=== PATIENT | female | born 1950 | race Asian ===

== ENCOUNTER → 2017-11-02 | Outpatient (CLI) | payer BC, OTHER | END | disposition home or self-care (01) | LOC: CFH 14:45 | PROVIDERS: ATTEND Internal Medicine | DX: J84.10 Pulmonary fibrosis, unspecified (principal); R06.00 Dyspnea, unspecified | CPT/HCPCS: 71046 ==

== ENCOUNTER → 2019-04-18 | Outpatient (CLI) | payer BC, MEDICARE, OTHER | END | disposition home or self-care (01) | LOC: CFH 13:40 | PROVIDERS: ATTEND Family Medicine | DX: M16.12 Unilateral primary osteoarthritis, left hip (principal); M47.816 Spondylosis without myelopathy or radiculopathy, lumbar region; M43.28 Fusion of spine, sacral and sacrococcygeal region; M25.752 Osteophyte, left hip; M25.78 Osteophyte, vertebrae | CPT/HCPCS: 72110 ==

== ENCOUNTER → 2019-06-11 | Outpatient (CLI) | payer BC, MEDICARE, OTHER | END | disposition home or self-care (01) | LOC: CFH 14:57 | PROVIDERS: ATTEND Internal Medicine Rheumatology | DX: M19.041 Primary osteoarthritis, right hand (principal); M19.042 Primary osteoarthritis, left hand; M77.32 Calcaneal spur, left foot; M47.812 Spondylosis without myelopathy or radiculopathy, cervical region; M48.02 Spinal stenosis, cervical region; M25.78 Osteophyte, vertebrae; M06.4 Inflammatory polyarthropathy | CPT/HCPCS: 72040; 72072; 72110; 72202; 73565; 77077 ==

== ENCOUNTER → 2020-10-14 | Outpatient (CLI) | payer BC, MEDICARE, OTHER | END | disposition home or self-care (01) | LOC: CFH 13:57 | PROVIDERS: ATTEND Student in an Organized Health Care Education/Training Program | DX: Z12.31 Encounter for screening mammogram for malignant neoplasm of breast (principal) | CPT/HCPCS: 77063; 77067 ==